=== PATIENT | female | born 1975 | race African-American/Black ===

== ENCOUNTER 2020-02-24 19:01 | Inpatient (IN) ==
[2020-02-24] MEDS ORDERED: AZITHROMYCIN 250 MG TABLET PO STA (20:21)
[2020-02-24] MEDS ORDERED: DEXAMETHASONE 4 MG/1 ML VIAL IV STA (20:21)
[2020-02-24] MEDS ORDERED: ACETAMINOPHEN 500 MG TABLET PO STA (20:21)
[2020-02-24 21:20] LABS: Basophils % 0.2 % (0.0-0.8); Eosinophils % 0.1 % (0.00-10.9); Hemoglobin 14.4 GM/DL (12.0-16.0); Immature Granulocytes % 0.6 %; Lymphocytes # 1.4 10*3/uL (1.4-4.0); Lymphocytes % 8.7 % (21.3-54.2); Mean Corpuscular HGB Conc 32.7 GM/DL (32-36); Mean Corpuscular Volume 85.8 FL (87-102); Mean Platelet Volume 11.5 FL (9.6-12.0); Monocytes % 14.4 % (1.7-12.7); Platelet Count 161 T/CUMM (130-400); Red Blood Count 5.13 MC/CUMM (3.8-5.5); White Blood Count 16.4 T/CUMM (4-12)
[2020-02-24 21:28] LABS: INR 1.2; PT Patient Result 12.9 SECS (9.8-11.9)
[2020-02-24 21:42] LABS: Albumin 2.7 G/DL (3.4-5.0); Calcium 8.4 MG/DL (8.5-10.1); Ferritin 129.7 ng/ml (8-252); Osmolality,Calculated 268.9 MOS/KG (273-304); Total Protein 8.2 G/DL (6.4-8.3)
[2020-02-24 22:33] LABS: Apearance,Urine Slightly Hazy (Clear); Bacteria,Urine Occasional /HPF (Few); Bilirubin,Urine Negative (Negative); Blood, Urine Moderate mg/dL (Negative); Glucose,Urine (UA) >=500 mg/dL (Negative); Hyaline Casts,Urine 16 /LPF (0-3); Ketones,Urine Negative (Negative); Mucus,Urine Occasional /LPF (Occasional); Nitrite,Urine Positive (Negative); Protein,Urine 100 MG/DL; RBC,Urine 6 /HPF (0-4); Squamous Epithelial Cell,Urine Few /HPF (0-10); Urine Color Amber (Yellow); WBC,Urine 90 /HPF (0-6)
[2020-02-24] MEDS ORDERED: cefTRIAXone 1,000 MG in SODIUM CHLORIDE 0.9% 100 ML IV STA (22:50)
[2020-02-24] MEDS ORDERED: PIPERACILLIN/TAZOBACTAM 3,375 MG in SODIUM CHLORIDE 0.9% 100 ML IV STA (23:07)
[2020-02-24] MEDS ORDERED: SODIUM CHLORIDE 0.9% 1,000 ML IV STA (23:08)
[2020-02-24] MEDS ORDERED: POTASSIUM CHLORIDE 20 MEQ TABLET PO STA (23:08)
[2020-02-24] MEDS ORDERED: PIPERACILLIN/TAZOBACTAM 3,375 MG VIAL IV ONE (23:58)
[2020-02-25] MEDS ORDERED: GLUCAGON 1 MG VIAL IM PRN (01:45)
[2020-02-25] MEDS ORDERED: ACETAMINOPHEN 325 MG TABLET PO PRN (01:45)
[2020-02-25] MEDS ORDERED: ONDANSETRON 4 MG/2 ML VIAL IV PRN (01:45)
[2020-02-25] MEDS ORDERED: DEXTROSE 50% 25 GM/50 ML VIAL IV PRN (01:45)
[2020-02-25] MEDS ORDERED: MAGNESIUM SULF RIDER 4 GM in PREMIX 1 EACH IV PRN (02:15)
[2020-02-25] MEDS ORDERED: MAGNESIUM SULF RIDER 2 GM in PREMIX 1 EACH IV PRN (02:15)
[2020-02-25] MEDS: SODIUM CHLORIDE 0.9% 1,000 ML IV SCH ×3 (03:01→23:26)
[2020-02-25 05:57] LABS: Basophils % 0.1 % (0.0-0.8); Hematocrit 41.1 VOL% (35.7-47.0); Hemoglobin 13.2 GM/DL (12.0-16.0); Immature Granulocytes % 0.8 %; Immature Granulocytes Absolute 0.12 #; Lymphocytes # 0.8 10*3/uL (1.4-4.0); Lymphocytes % 5.6 % (21.3-54.2); Mean Corpuscular HGB Conc 32.1 GM/DL (32-36); Mean Corpuscular Volume 84.9 FL (87-102); Mean Platelet Volume 11.7 FL (9.6-12.0); Neutrophils % 90.5 % (38.7-73.9); Platelet Count 171 T/CUMM (130-400); Red Blood Count 4.84 MC/CUMM (3.8-5.5); Red Cell Distribution Width 13.1 % (9.3-17.3); White Blood Count 14.5 T/CUMM (4-12)
[2020-02-25 06:15] LABS: Calcium 8.4 MG/DL (8.5-10.1); Osmolality,Calculated 284.4 MOS/KG (273-304)
[2020-02-25] MEDS ORDERED: PIPERACILLIN/TAZOBACTAM 3,375 MG in SODIUM CHLORIDE 0.9% 100 ML IV SCH (08:00)
[2020-02-25] MEDS: INSULIN REGULAR 100 UNIT/ML SUBCUT SCH ×2 (09:19→11:53)
[2020-02-25] MEDS: ENOXAPARIN 40 MG/0.4 ML SYRINGE SUBCUT SCH (09:20)
[2020-02-25] MEDS: cefTRIAXone 1,000 MG in SYRINGE 1 EACH IV SCH (15:59)
[2020-02-25] MEDS: INSULIN LISPRO 100 UNIT/ML SUBCUT SCH ×2 (16:51→21:15)
[2020-02-25] MEDS: INSULIN ASPART PROTAMINE/ASPART 70/30 100 UNIT/ML SUBCUT SCH (16:55)
[2020-02-26 05:48] LABS: Basophils % 0.1 % (0.0-0.8); Hematocrit 36.6 VOL% (35.7-47.0); Hemoglobin 11.8 GM/DL (12.0-16.0); Immature Granulocytes Absolute 0.19 #; Lymphocytes # 1.5 10*3/uL (1.4-4.0); Lymphocytes % 7.8 % (21.3-54.2); Mean Corpuscular HGB Conc 32.2 GM/DL (32-36); Mean Corpuscular Volume 86.7 FL (87-102); Mean Platelet Volume 12.3 FL (9.6-12.0); Monocytes % 5.7 % (1.7-12.7); Neutrophils % 85.4 % (38.7-73.9); Platelet Count 165 T/CUMM (130-400); Red Blood Count 4.22 MC/CUMM (3.8-5.5); Red Cell Distribution Width 13.6 % (9.3-17.3); White Blood Count 19.4 T/CUMM (4-12)
[2020-02-26 06:01] LABS: Osmolality,Calculated 280.2 MOS/KG (273-304)
[2020-02-26] MEDS: SODIUM CHLORIDE 0.9% 1,000 ML IV SCH ×3 (07:35→19:46)
[2020-02-26] MEDS: INSULIN LISPRO 100 UNIT/ML SUBCUT SCH ×4 (09:05→21:31)
[2020-02-26] MEDS: INSULIN ASPART PROTAMINE/ASPART 70/30 100 UNIT/ML SUBCUT SCH ×2 (09:37→17:00)
[2020-02-26] MEDS: ENOXAPARIN 40 MG/0.4 ML SYRINGE SUBCUT SCH (10:05)
[2020-02-26] MEDS: NICOTINE 21 MG/24 HR PATCH TRANSDERM SCH (15:10)
[2020-02-26] MEDS: cefTRIAXone 1,000 MG in SYRINGE 1 EACH IV SCH (16:21)
[2020-02-26] MEDS: VANCOMYCIN INJ 1,250 MG in SODIUM CHLORIDE 0.9% 250 ML IV SCH (16:22)
[2020-02-26] MEDS: ALPRAZolam 0.25 MG TABLET PO PRN (17:33)
[2020-02-27] MEDS: ALPRAZolam 0.25 MG TABLET PO PRN ×4 (00:50→23:34)
[2020-02-27] MEDS: SODIUM CHLORIDE 0.9% 1,000 ML IV SCH ×3 (02:32→21:30)
[2020-02-27] MEDS: VANCOMYCIN INJ 1,250 MG in SODIUM CHLORIDE 0.9% 250 ML IV SCH ×2 (04:55→17:33)
[2020-02-27 06:23] LABS: Basophils % 0.1 % (0.0-0.8); Eosinophils % 0.3 % (0.00-10.9); Immature Granulocytes % 0.6 %; Immature Granulocytes Absolute 0.08 #; Lymphocytes # 2.9 10*3/uL (1.4-4.0); Lymphocytes % 22.5 % (21.3-54.2); Mean Corpuscular HGB Conc 33.3 GM/DL (32-36); Mean Corpuscular Volume 85.3 FL (87-102); Mean Platelet Volume 11.4 FL (9.6-12.0); Monocytes % 10.4 % (1.7-12.7); Neutrophils % 66.1 % (38.7-73.9); Platelet Count 214 T/CUMM (130-400); Red Blood Count 3.87 MC/CUMM (3.8-5.5); Red Cell Distribution Width 13.6 % (9.3-17.3); White Blood Count 12.7 T/CUMM (4-12)
[2020-02-27 06:58] LABS: Hypochromasia 1+; Microcytosis Slight; Platelet Estimate Adequate
[2020-02-27 07:02] LABS: Calcium 7.6 MG/DL (8.5-10.1); Osmolality,Calculated 281.3 MOS/KG (273-304)
[2020-02-27] MEDS: INSULIN LISPRO 100 UNIT/ML SUBCUT SCH ×4 (07:42→22:57)
[2020-02-27] MEDS: INSULIN ASPART PROTAMINE/ASPART 70/30 100 UNIT/ML SUBCUT SCH ×2 (11:04→17:33)
[2020-02-27] MEDS: ENOXAPARIN 40 MG/0.4 ML SYRINGE SUBCUT SCH (11:06)
[2020-02-27] MEDS: NICOTINE 21 MG/24 HR PATCH TRANSDERM SCH (11:06)
[2020-02-27] MEDS ORDERED: FLUoxetine 10 MG CAPSULE PO SCH (15:00)
[2020-02-27] MEDS: cefTRIAXone 1,000 MG in SYRINGE 1 EACH IV SCH (17:37)
[2020-02-27] MEDS: FLUoxetine 20 MG CAPSULE PO SCH (17:37)
[2020-02-28] MEDS: VANCOMYCIN INJ 1,250 MG in SODIUM CHLORIDE 0.9% 250 ML IV SCH ×2 (04:03→16:54)
[2020-02-28 06:03] LABS: Basophils % 0.3 % (0.0-0.8); Eosinophils # 0.1 10*3/uL (0.0-0.87); Eosinophils % 1.3 % (0.00-10.9); Hematocrit 35.3 VOL% (35.7-47.0); Hemoglobin 11.4 GM/DL (12.0-16.0); Immature Granulocytes % 0.8 %; Immature Granulocytes Absolute 0.09 #; Lymphocytes # 2.4 10*3/uL (1.4-4.0); Lymphocytes % 22.3 % (21.3-54.2); Mean Corpuscular HGB Conc 32.3 GM/DL (32-36); Mean Corpuscular Volume 85.7 FL (87-102); Mean Platelet Volume 11.2 FL (9.6-12.0); Monocytes % 11.6 % (1.7-12.7); Neutrophils % 63.7 % (38.7-73.9); Platelet Count 243 T/CUMM (130-400); Red Blood Count 4.12 MC/CUMM (3.8-5.5); Red Cell Distribution Width 13.7 % (9.3-17.3); White Blood Count 10.9 T/CUMM (4-12)
[2020-02-28 06:22] LABS: Calcium 8.2 MG/DL (8.5-10.1)
[2020-02-28 06:51] LABS: Lymphocytes 21 % (20-55); Platelet Estimate Adequate; Segmented Neutrophils 68 % (50-85); Total Cells Counted 100
[2020-02-28 06:52] LABS: Hypochromasia 1+; Microcytosis Slight
[2020-02-28] MEDS: SODIUM CHLORIDE 0.9% 1,000 ML IV SCH ×4 (07:52→21:08)
[2020-02-28] MEDS: INSULIN LISPRO 100 UNIT/ML SUBCUT SCH ×4 (07:52→22:35)
[2020-02-28] MEDS: INSULIN ASPART PROTAMINE/ASPART 70/30 100 UNIT/ML SUBCUT SCH ×2 (07:52→16:17)
[2020-02-28] MEDS: POTASSIUM CHLORIDE 20 MEQ TABLET PO PRN ×4 (09:27→13:52)
[2020-02-28] MEDS: NICOTINE 21 MG/24 HR PATCH TRANSDERM SCH (09:28)
[2020-02-28] MEDS: ENOXAPARIN 40 MG/0.4 ML SYRINGE SUBCUT SCH (09:28)
[2020-02-28] MEDS: FLUoxetine 20 MG CAPSULE PO SCH (09:28)
[2020-02-28] MEDS: ALPRAZolam 0.25 MG TABLET PO PRN ×2 (10:56→21:07)
[2020-02-28] MEDS: cefTRIAXone 1,000 MG in SYRINGE 1 EACH IV SCH (15:33)
[2020-02-28] MEDS ORDERED: SIMETHICONE CHEW 125 MG TABLET PO PRN (21:47)
[2020-02-29] MEDS: VANCOMYCIN INJ 1,250 MG in SODIUM CHLORIDE 0.9% 250 ML IV SCH (03:47)
[2020-02-29] MEDS: ALPRAZolam 0.25 MG TABLET PO PRN ×2 (04:23→10:25)
[2020-02-29] MEDS: SODIUM CHLORIDE 0.9% 1,000 ML IV SCH ×2 (04:24→10:14)
[2020-02-29 06:08] LABS: Basophils % 0.3 % (0.0-0.8); Eosinophils # 0.2 10*3/uL (0.0-0.87); Eosinophils % 2.3 % (0.00-10.9); Hematocrit 33.1 VOL% (35.7-47.0); Hemoglobin 10.6 GM/DL (12.0-16.0); Immature Granulocytes % 1.6 %; Immature Granulocytes Absolute 0.16 #; Lymphocytes # 2.3 10*3/uL (1.4-4.0); Lymphocytes % 23.3 % (21.3-54.2); Mean Corpuscular Volume 85.1 FL (87-102); Mean Platelet Volume 11.2 FL (9.6-12.0); Neutrophils % 64.5 % (38.7-73.9); Platelet Count 236 T/CUMM (130-400); Red Blood Count 3.89 MC/CUMM (3.8-5.5); Red Cell Distribution Width 13.8 % (9.3-17.3); White Blood Count 9.9 T/CUMM (4-12)
[2020-02-29 06:34] LABS: Platelet Estimate Normal
[2020-02-29 06:59] LABS: Calcium 7.9 MG/DL (8.5-10.1); Osmolality,Calculated 280.5 MOS/KG (273-304)
[2020-02-29] MEDS: INSULIN LISPRO 100 UNIT/ML SUBCUT SCH ×2 (10:12→12:12)
[2020-02-29] MEDS: NICOTINE 21 MG/24 HR PATCH TRANSDERM SCH (10:12)
[2020-02-29] MEDS: FLUoxetine 20 MG CAPSULE PO SCH (10:12)
[2020-02-29] MEDS: ENOXAPARIN 40 MG/0.4 ML SYRINGE SUBCUT SCH (10:12)
[2020-02-29] MEDS: INSULIN ASPART PROTAMINE/ASPART 70/30 100 UNIT/ML SUBCUT SCH (10:13)
[2020-02-29 11:50] VITALS: BP 131/63
[2020-02-29] MEDS: cefTRIAXone 1,000 MG in SYRINGE 1 EACH IV SCH (15:25)
== END 2020-02-29 15:05 | disposition home or self-care (01) | DRG 690 ==
LOC: N.ED 19:01 → N.EDINP 02-25 01:08 → N.3E 02-25 02:12 → N.2E 02-25 03:08 → N.3E 02-25 17:46
PROVIDERS: ADMIT Internal Medicine; ATTEND Internal Medicine